=== PATIENT | female | born 1995 | race Caucasian/White ===

== ENCOUNTER 2021-12-20 03:35 | Emergency (ER) | payer OTHER ==
[2021-12-20 04:19] VITALS: BP 108/70; PULSE 61; TEMP 98.3; BMI 20.3
[2021-12-20] MEDS ORDERED: cefTRIAXone SODIUM 1 GM VIAL ONE (08:31)
[2021-12-20] MEDS ORDERED: LIDOCAINE HCL 2% (20ML MULTI-DOSE VIAL) ONE (08:32)
[2021-12-20 11:05] LABS: SYPHILIS W/ RPR CONF NON-REACTIVE (NONREACTIVE)
[2021-12-20 11:33] LABS: HIV INTERPRETATION NEGATIVE (NEGATIVE)
== END 2021-12-20 09:21 | disposition home or self-care (01) ==
LOC: JER 03:35
DX: T76.21XA Adult sexual abuse, suspected, initial encounter (principal)
CPT/HCPCS: 36415; 84703; 86780; 87389; 87491; 87591; 99283-25